=== PATIENT | female | born 1975 | race Caucasian/White ===

== ENCOUNTER → 2016-11-22 | Outpatient (CLI) | payer SELFPAY | END | disposition home or self-care (01) | LOC: CARD 09:53 | DX: Z01.818 Encounter for other preprocedural examination (principal); N63 Unspecified lump in breast ==

== ENCOUNTER 2016-11-26 07:08 | Day surgery (SDC) | payer SELFPAY ==
[~2016-11-26] VITALS: Ht 162.6 cm; Wt 71.0 kg
--- NOTE | 2016-11-27 10:45 | OR ---
ADMIT: 11/26/2016 RM/LOC: [facility] MR#: [id number] [address] [id number] [address] [place] [address] Operative/Delivery Room Report SEX: F AGE: 41 : 1975 SURGERY DATE: 11/26/2016 SURGEON: Nick James MD PREOPERATIVE DIAGNOSIS: Left breast atypical ductal hyperplasia, upper outer quadrant. POSTOPERATIVE DIAGNOSIS: Left breast atypical ductal hyperplasia, upper outer quadrant. PROCEDURE PERFORMED: Left breast biopsy with needle localization, upper outer quadrant. ANESTHESIA: General endotracheal with the addition of Marcaine in the wound postprocedure. ESTIMATED BLOOD LOSS: Less than 10 mL. DESCRIPTION OF PROCEDURE: After appropriate informed consent was obtained, the patient was brought to the operating room. She had needle localization performed by Radiology preoperatively. Her left breast was prepped and draped in a sterile fashion after general endotracheal anesthesia was induced. An elliptical incision was made around the wires in the upper outer quadrant of her left breast. This was carried deep with cautery, and a generous biopsy specimen was taken from the upper outer quadrant of the left breast. This was sent to Radiology, which stated that we did not have the area of interest. Since I had closed the wound, I re-opened things and took a little bit of additional tissue off the chest wall, which ultimately confirmed that we had the clip in that second specimen. The wound was then injected with Marcaine and closed with 3-0 Vicryl in the dermal layer and running 4-0 Monocryl in the subcuticular layer. Sterile dressings were applied. The patient tolerated the procedure well and was taken to the recovery room in stable condition. Nick James MD/ juanita JOB #: [id number] CC: Nick James, Attending Physician Peg Patterson, Family Physician
== END 2016-11-26 15:25 | disposition home or self-care (01) ==
LOC: SSS 07:08
PROC: 0HBU0ZX Excision of Left Breast, Open Approach, Diagnostic (ICD-10-PCS; principal; 2016-11-26)
DX: D24.2 Benign neoplasm of left breast (principal); N60.32 Fibrosclerosis of left breast; Z98.890 Other specified postprocedural states; N60.92 Unspecified benign mammary dysplasia of left breast; Z79.899 Other long term (current) drug therapy